=== PATIENT | male | born 1970 | race Caucasian/White ===

== ENCOUNTER 2016-04-10 16:50 | Emergency (ER) | payer OTHER ==
[~2016-04-10 16:50] MED LIST: ASPCH81X PO; BACL1TAB PO; CITA40TA12 PO; LEVE1TAB57 PO; RANI150T3 PO
[2016-04-10 17:33] VITALS: TEMP 37
[2016-04-10] MEDS ORDERED: ONDANSETRON INJ 2 MG/ML 2 ML VIAL IV STA (18:57)
[2016-04-10] MEDS ORDERED: MoRPHine SULFATE 4 MG/ML 1 ML CARP\\VIAL IV STA ×2 (18:57→19:28)
--- NOTE | 2016-04-10 19:07 | EMERGENCY ROOM VISIT NOTE ---
History Report prepared by Adrián: Misti Delong Under the Supervision of: Dr. Otto Cloes M.D. First contact with patient: 18:40 Chief Complaint: FEVER Stated Complaint: FEVER,APIN,NAUSEA,PAIN URINATING History of Present Illness The patient is a 45 year old male who presents to the Emergency Room with complaints of worsening right flank pain that began several days ago. He currently rates his discomfort as an 8/10 in severity, but with movement his pain is a 10/10. Per the patient's , the patient had a stroke five years ago that caused him to have aphasia. She notes that five years ago to the day, the patient fell off the back of a pick-up truck. 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 The patient states that he has a history of kidney stones, but denies any history of rib injuries. He states that he has been experiencing right flank pain today and additionally notes burning with urination. The patient denies any pain radiating into his groin, but notes increased pain with breathing. He describes his pain as a stabbing pain. The patient denies any cough or fever. The patient's notes that the patient experiences spasms on the right side and weakness to his right side due to the CVA. She states that the patient is aspirin daily. The patient's notes that the patient had fallen three times in one day several weeks ago. The patient states that he drinks alcohol and his family believes that he drinks more than what he should. He denies any history of a cholecystectomy. The patient's notes that the patient has a history of grade three seizures. She additionally notes that the patient was bit by their dog this week. Source of History: patient, spouse/significant other () Onset: several days ago Position: other (right flank) Symptom Intensity: 8-10/10 Quality: stabbing Timing: worsening Modifying Factors (Worsening): breathing Associated Symptoms: + urinary symptoms (burning with urination), No chills , No fevers Review of Systems See HPI for pertinent positives & negatives. A total of 10 systems reviewed and were otherwise negative. Past Medical & Surgical Medical Problems: (1) CVA (cerebral vascular accident) Old medical records were reviewed. Nurse's notes were reviewed and I agree with. 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 Social History Smoking Status: Current Every Day Smoker Alcohol Use: occasionally Drug Use: none Marital Status: Occupation Status: employed Current/Historical Medications Scheduled Aspirin (Aspirin Chewable), 81 MG PO DAILY Lacosamide (Vimpat), 100 MG PO BID Levetiracetam (Keppra), 1,500 MG PO BID Scheduled PRN Baclofen (Lioresal), 10 MG PO BID PRN for PRN Ibuprofen (Motrin), 600 MG PO Q6H PRN for Pain Oxycodone Immediate Rel Tab (Roxicodone Ir), 1-2 TAB PO Q4H PRN for Severe Pain Ranitidine Hcl (Zantac), 150 MG PO DAILY PRN for GI Upset Allergies Coded Allergies: Penicillins (Verified Allergy, Unknown, 04/10/16) Physical Exam Vital Signs Date Time Temp Pulse Resp B/P Pulse Ox O2 Delivery O2 Flow Rate FiO2 04/10/16 22:15 70 18 122/69 92 Room Air 04/10/16 19:30 93 04/10/16 19:26 98 20 119/68 95 Room Air 04/10/16 17:33 37.0 70 18 123/71 94 Room Air Physical Exam General: Well developed well nourished non-ill appearing middle aged male in no acute distress, breathing comfortably on room air. Baseline aphasia, but able to answer questions appropriately. HEENT: Normal cephalic atraumatic. Pupils are equal round and reactive to light. Extraocular movements are intact. Oropharynx is pink with moist mucous membranes. No swelling of the mouth lips or tongue. Neck: Supple with a midline trachea. No meningeal signs or stiffness, no JVD or bruits. No Stridor. Chest: Clear to auscultation bilaterally. No wheezes or rhonchi. No increased work of breathing. Heart: regular rate and rhythm. Abdomen: Soft nontender, nondistended without rebound guarding or rigidity. Extremities: No cyanosis clubbing or edema. No calf tenderness or assymetry Spine/Back. Pain to the right posterior ribs, no crepitus. Pain is worse with breathing and movement. No CVA tenderness Skin: Good turgor without rashes. Neurologic exam: Normal strength the left side. He has some strength the right arm but contracture of his hand. his right leg seems to be about equal to the left. His neurologic exam is at baseline. Medical Decision & Procedures ER Provider Diagnostic Interpretation: X ray results as stated below per my interpretation and radiologist interpretation. Other radiology results as stated below per my review and radiologist interpretation: CHEST ONE VIEW PORTABLE CLINICAL HISTORY: CHEST PAIN dyspnea COMPARISON STUDY: 09/08/2012 FINDINGS: Small bibasilar parenchymal infiltrates. Mid to upper lungs are clear. Diaphragms smooth. IMPRESSION: Small bibasilar parenchymal infiltrates Electronically signed by: Jaya aMckenzie M.D. 04/10/2016 8:14 PM Dictated Date/Time: 04/10/2016 8:14 PM CHEST CTA for PULMONARY ARTERIES CT DOSE: 1370.59 mGy.cm HISTORY: Chest pain dyspnea TECHNIQUE: Multiaxial CT images of the chest were performed following the intravenous administration of contrast to evaluate the pulmonary arteries. Maximal intensity projection images were also obtained. COMPARISON STUDY: None. FINDINGS: Study is negative for pulmonary embolus. There is a small right effusion. There is a small right and to lesser extent left basilar atelectatic process. There is a small parenchymal infiltrate of the right lobe. IMPRESSION: 1. Study is negative for pulmonary embolus. 2. Mild bibasilar atelectasis. 3. Small right effusion. Electronically signed by: Jaya Mackenzie M.D. 04/10/2016 9:29 PM Dictated Date/Time: 04/10/2016 9:27 PM ABDOMEN AND PELVIS CT WITH IV CONTRAST CT DOSE: HISTORY: Trauma eval for trauma, kidneys tone, liver disease TECHNIQUE: Multiaxial CT images of the abdomen and pelvis were performed following the use of intravenous contrast. COMPARISON STUDY: None. FINDINGS: Small right pleural effusion. Bibasilar atelectatic and/or infiltrative change. Liver spleen and pancreas are unremarkable. Gallbladder is negative for distention. Nonobstructive bowel pattern. Kidneys enhance uniformly. Nonobstructive bowel pattern. Bladder is midline. Several prostatic calcifications. IMPRESSION: 1. No acute process of the abdomen or pelvis. 2. Small right pleural effusion. 3. Right and to lesser extent left basilar infiltrative change Electronically signed by: Jaya Mackenzie M.D. 04/10/2016 9:37 PM Dictated Date/Time: 04/10/2016 9:34 PM Laboratory Results 04/10/16 19:16 Red Blood Count 4.69, Mean Corpuscular Volume 90.6, Mean Corpuscular Hemoglobin 31.8, Mean Corpuscular Hemoglobin Concent 35.1, Mean Platelet Volume 8.1, Neutrophils (%) (Auto) 57.9, Lymphocytes (%) (Auto) 19.7, Monocytes (%) (Auto) 12.8, Eosinophils (%) (Auto) 8.8, Basophils (%) (Auto) 0.5, Neutrophils # (Auto ) 6.08, Lymphocytes # (Auto) 2.07, Monocytes # (Auto) 1.35, Eosinophils # (Auto ) 0.93, Basophils # (Auto) 0.05 04/10/16 19:16 Test 04/10/16 18:40 04/10/16 19:16 04/10/16 19:34 Urine Color YELLOW Urine Appearance CLEAR (CLEAR) Urine pH 6.0 (4.5-7.5) Urine Specific [place] 1.020 (1.000-1.030) Urine Protein NEG (NEG) Urine Glucose (UA) NEG (NEG) Urine Ketones NEG (NEG) Urine Occult Blood NEG (NEG) Urine Nitrite NEG (NEG) Urine Bilirubin NEG (NEG) Urine Urobilinogen NEG (NEG) Urine Leukocyte Esterase NEG (NEG) White Blood Count 10.51 K/uL (4.8-10.8) Red Blood Count 4.69 M/uL (4.7-6.1) Hemoglobin 14.9 g/dL (14.0-18.0) Hematocrit 42.5 % (42-52) Mean Corpuscular Volume 90.6 fL (80-100) Mean Corpuscular Hemoglobin 31.8 pg (25-34) Mean Corpuscular Hemoglobin Concent 35.1 g/dl (32-36) Platelet Count 256 K/uL (130-400) Mean Platelet Volume 8.1 fL (7.4-10.4) Neutrophils (%) (Auto) 57.9 % Lymphocytes (%) (Auto) 19.7 % Monocytes (%) (Auto) 12.8 % Eosinophils (%) (Auto) 8.8 % Basophils (%) (Auto) 0.5 % Neutrophils # (Auto) 6.08 K/uL (1.4-6.5) Lymphocytes # (Auto) 2.07 K/uL (1.2-3.4) Monocytes # (Auto) 1.35 K/uL (0.11-0.59) Eosinophils # (Auto) 0.93 K/uL (0-0.5) Basophils # (Auto) 0.05 K/uL (0-0.2) RDW Standard Deviation 39.6 fL (36.4-46.3) RDW Coefficient of Variation 12.0 % (11.5-14.5) Immature Granulocyte % (Auto) 0.3 % Immature Granulocyte # (Auto) 0.03 K/uL (0.00-0.02) Anion Gap 10.0 mmol/L (3-11) Estimated GFR () 110.2 Estimated GFR (Non- 95.1 BUN/Creatinine Ratio 13.5 (10-20) Calcium Level 8.8 mg/dl (8.5-10.1) Total Bilirubin 0.2 mg/dl (0.2-1) Direct Bilirubin < 0.1 mg/dl (0-0.2) Aspartate Amino Transf (AST/SGOT) 9 U/L (15-37) Alanine Aminotransferase (ALT/SGPT) 18 U/L (12-78) Alkaline Phosphatase 79 U/L (45-117) Total Protein 7.3 gm/dl (6.4-8.2) Albumin 3.6 gm/dl (3.4-5.0) Lipase 131 U/L (73-393) Bedside Troponin I 0.000 ng/ml (0-0.045) Laboratory studies as stated above per my review. Medications Administered Medications (Trade) Dose Ordered Sig/Iris Route Start Time Stop Time Status Last Admin Dose Admin Morphine Sulfate (MoRPHine SULFATE INJ) 4 mg NOW STAT IV 04/10/16 18:57 04/10/16 18:59 DC 04/10/16 19:20 4 MG Ondansetron HCl (Zofran Inj) 4 mg NOW STAT IV 04/10/16 18:57 04/10/16 18:59 DC 04/10/16 19:20 4 MG Ketorolac Tromethamine (Toradol Inj) 30 mg NOW STAT IV 04/10/16 19:28 04/10/16 19:29 DC 04/10/16 19:31 30 MG Morphine Sulfate (MoRPHine SULFATE INJ) 4 mg NOW STAT IV 04/10/16 19:28 04/10/16 19:29 DC 04/10/16 19:32 4 MG Oxycodone HCl (Roxicodone Immediate Rel 5MG Home Pack) 1 homepack UD ONCE PO 04/10/16 22:15 04/10/16 22:16 DC 04/10/16 22:13 1 HOMEPACK ECG Indication: chest pain Rate (beats per minute): 89 Rhythm: normal sinus Findings: no acute ischemic change, no ectopy Comparison ECG Date: 02/06/13 Change: EKG Change: When compared to EKG done on 02/06/13, rate has increased, but no other acute change. ED Course 1847: Past medical records reviewed. The patient was evaluated in room C2B, and a complete history and physical examination were performed. 1856: Ordered Zofran inj 4 mg IV, Morphine Sulfate 4 mg IV. 1927: I reevaluated the patient and he is experiencing increased pain. Ordered Morphine Sulfate 4 mg IV, Toradol inj 30 mg IV. 1939: I reevaluated the patient and he is feeling better. 2017: I reevaluated the patient and he is feeling better. 2149: I reevaluated the patient and he is resting comfortably. I discussed the exam findings with him and his family and I discussed the treatment plan. They all verbalized complete understanding and agreement. The patient is ready to go home. 2214: Ordered Oxycodone HCl 1 homepack PO. Medical Decision Differentials include, but are not limited to; rib fracture, musculoskeletal pain, pneumothorax, PE, electrolyte or metabolic abnormality, liver or gallbladder disease. This patient comes in as described above. He was placed in room C2. He's been having pain along the right lower ribs posteriorly to the flank. He did fall about a month ago. He also does of his seizure disorder although has had no known seizure recently. he does have aphais and so it's difficult for him to express his thoughts at times although he answers questions very appropriately. He appears in no distress however has occasional episodes what appears be a spasm or has a lot of pain. IV access established, EKG, chest x-ray, multiple blood testing was obtained and ultimately CAT scans of the chest abdomen and pelvis. His symptoms are very atypical for cardiac disease. He is EKG is unremarkable as is troponin. His symptoms are reproducible on movement and palpation and I think most likely are musculoskeletal. His chest CT shows no evidence of PE or pneumothorax. He has a small pleural effusion and it may be from a rib fracture. He has no evidence of any intra-abdominal pathology or injury. He has has nothing to suggest obstructive uropathy or kidney stone. He has no fever or white count to suggest infection. He has no acute electrolyte or metabolic abnormalities. I think most likely this is musculoskeletal spasm. He did receive IV morphine while he was in the ER twice and was resting comfortably with this. He feels up to going home. I will encourage close follow -up with his regular doctor. I encouraged him use anti-inflammatory like ibuprofen. For breakthrough pain, he use OxyIR 5 mg, one or 2 pills every 4-6 hours as needed. He was warned that this can make him drowsy and do not take before drinking, driving, working and be careful getting up and down. The patient and his and family were happy with the plan and he was encouraged to return if : worsening symptoms or any new problems or concerns. Impression Primary Impression: Right-sided chest pain Additional Impression: Pleural effusion Scribe Attestation The scribe's documentation has been prepared under my direction and personally reviewed by me in its entirety. I confirm that the note above accurately reflects all work, treatment, procedures, and medical decision making performed by me. Departure Information Dispostion Home / Self-Care Prescriptions Oxycodone Immediate Rel Tab (ROXICODONE IR) 5 Mg Tab 1-2 TAB PO Q4H Y for Severe Pain, #24 TAB Prov: Otto Coles M.D. 04/10/16 Referrals Ruth Bass M.D. (PCP) Forms HOME CARE DOCUMENTATION FORM, IMPORTANT VISIT INFORMATION Patient Instructions My [facility] Additional Instructions Rest. Drink plenty of fluids. Be careful and getting up and down May use an anti-inflammatory such as ibuprofen or Aleve. Take with food. For more severe pain, use OxyIR 5 mg, one or 2 pills every 4-6 hours as needed OxyIR may make you drowsy and do not take before drinking, driving, working Return if: Increasing pain, worsening of symptoms, shortness of breath, fever or chills, any new problems or concerns. Follow-up with your doctor in 1-2 days for recheck. Problem Qualifiers
[2016-04-10] MEDS ORDERED: LACO100T PO (19:19)
[2016-04-10] MEDS ORDERED: IBUP-1450 PO (19:20)
[2016-04-10 19:23] LABS: BASO % 0.5 %; BASO ABS # 0.05 K/uL (0-0.2); COMPLETE YES; EOS % 8.8 %; HEMATOCRIT 42.5 % (42-52); IG% 0.3 %; LYMPH % 19.7 %; LYMPH ABS # 2.07 K/uL (1.2-3.4); MEAN CELL VOLUME 90.6 fL (80-100); MEAN CORPUSCULAR HEMOGLOBIN 31.8 pg (25-34); MEAN CORPUSCULAR HGB CONC 35.1 g/dl (32-36); MEAN PLATELET VOLUME 8.1 fL (7.4-10.4); MONO % 12.8 %; NEUT % 57.9 %; PLATELET COUNT 256 K/uL (130-400); RED BLOOD COUNT 4.69 M/uL (4.7-6.1); WHITE BLOOD COUNT 10.51 K/uL (4.8-10.8)
[2016-04-10] MEDS ORDERED: KETOROLAC TROMETHAMINE 30 MG/ML VIAL IV STA (19:28)
[2016-04-10] MEDS ORDERED: KETOROLAC TROMETHAMINE 30 MG/ML VIAL ONE (19:29)
[2016-04-10 19:43] LABS: ALT/SGPT 18 U/L (12-78); AST/SGOT 9 U/L (15-37); BLOOD UREA NITROGEN 13 mg/dl (7-18); BUN/CREATININE RATIO 13.5 (10-20); CALCIUM 8.8 mg/dl (8.5-10.1); CARBON DIOXIDE 25 mmol/L (21-32); CHLORIDE 107 mmol/L (98-107); CREATININE 0.96 mg/dl (0.60-1.40); GLUCOSE 94 mg/dl (70-99); SODIUM 142 mmol/L (136-145)
[2016-04-10 19:45] LABS: ALKALINE PHOSPHATASE 79 U/L (45-117)
[2016-04-10 19:47] LABS: URINE APPEARANCE CLEAR (CLEAR); URINE BILIRUBIN NEG (NEG); URINE COLOR YELLOW; URINE NITRITE NEG (NEG); UROBILINOGEN NEG (NEG)
[2016-04-10 19:48] LABS: MANUAL MICROSCOPIC REQUIRED? NO; REVIEW REQ? NO
--- NOTE | 2016-04-10 20:15 | DIAGNOSTIC IMAGING REPORT ---
CHEST ONE VIEW PORTABLE CLINICAL HISTORY: CHEST PAIN dyspnea COMPARISON STUDY: 09/08/2012 FINDINGS: Small bibasilar parenchymal infiltrates. Mid to upper lungs are clear. Diaphragms smooth. IMPRESSION: Small bibasilar parenchymal infiltrates Electronically signed by: Jaya Mackenzie M.D. 04/10/2016 8:14 PM Dictated Date/Time: 04/10/2016 8:14 PM
[2016-04-10] MEDS ORDERED: OPTIRAY 320 IV PRN (20:30)
[2016-04-10] MEDS ORDERED: HYDROmorphone INJ 1 MG/ML SYR ONE (21:18)
--- NOTE | 2016-04-10 21:30 | DIAGNOSTIC IMAGING REPORT ---
CHEST CTA for PULMONARY ARTERIES CT DOSE: 1370.59 mGy.cm HISTORY: Chest pain dyspnea TECHNIQUE: Multiaxial CT images of the chest were performed following the intravenous administration of contrast to evaluate the pulmonary arteries. Maximal intensity projection images were also obtained. COMPARISON STUDY: None. FINDINGS: Study is negative for pulmonary embolus. There is a small right effusion. There is a small right and to lesser extent left basilar atelectatic process. There is a small parenchymal infiltrate of the right lobe. IMPRESSION: 1. Study is negative for pulmonary embolus. 2. Mild bibasilar atelectasis. 3. Small right effusion. Electronically signed by: Jaya Mackenzie M.D. 04/10/2016 9:29 PM Dictated Date/Time: 04/10/2016 9:27 PM
--- NOTE | 2016-04-10 21:38 | DIAGNOSTIC IMAGING REPORT ---
ABDOMEN AND PELVIS CT WITH IV CONTRAST CT DOSE: HISTORY: Trauma eval for trauma, kidneys tone, liver disease TECHNIQUE: Multiaxial CT images of the abdomen and pelvis were performed following the use of intravenous contrast. COMPARISON STUDY: None. FINDINGS: Small right pleural effusion. Bibasilar atelectatic and/or infiltrative change. Liver spleen and pancreas are unremarkable. Gallbladder is negative for distention. Nonobstructive bowel pattern. Kidneys enhance uniformly. Nonobstructive bowel pattern. Bladder is midline. Several prostatic calcifications. IMPRESSION: 1. No acute process of the abdomen or pelvis. 2. Small right pleural effusion. 3. Right and to lesser extent left basilar infiltrative change Electronically signed by: Jaya Mackenzie M.D. 04/10/2016 9:37 PM Dictated Date/Time: 04/10/2016 9:34 PM
[2016-04-10] MEDS ORDERED: OXYC1TAB3 PO (22:06)
[2016-04-10 22:15] VITALS: BP 122/69; PULSE 70; O2SAT 92
[2016-04-10] MEDS ORDERED: OXYCODONE IR HOME PACK PO ONE (22:15)
== END 2016-04-10 22:16 | disposition home or self-care (01) ==
LOC: C.EDB 16:51 → C.EDC 22:16
DX: R07.9 Chest pain, unspecified (principal); J90 Pleural effusion, not elsewhere classified; I69.320 Aphasia following cerebral infarction; R30.0 Dysuria; G40.909 Epilepsy, unspecified, not intractable, without status epilepticus; Z79.82 Long term (current) use of aspirin; Z79.899 Other long term (current) drug therapy; F17.200 Nicotine dependence, unspecified, uncomplicated; Z88.0 Allergy status to penicillin